=== PATIENT | female | born 1980 | race Two or more races ===

== ENCOUNTER 2022-05-13 08:52 | Emergency (ER) | payer OTHER, MEDICAID ==
[2022-05-13] MEDS ORDERED: ONDANSETRON HCL 4MG TABLET ONE (09:57)
[2022-05-13] MEDS ORDERED: ASPIRIN 81MG TABLET ONE (09:57)
[2022-05-13] MEDS ORDERED: ENOXAPARIN 80MG/0.8ML SYR SUBCUT ONE (14:45)
[2022-05-13 15:01] LABS: HCG SCREEN NEGATIVE
[2022-05-13 15:14] LABS: B-HCG QUANTITATIVE < 1 mIU/mL (<3); CHLORIDE 108 mEq/L (98-107)
[2022-05-13 15:21] LABS: BASOPHILS % 0.3 % (0.0-2.0); EOSINOPHILS % 0.1 % (0.0-5.0); HEMATOCRIT. 52.7 % (36.0-48.0); HEMOGLOBIN. 17.5 g/dL (12.0-16.0); LYMPHOCYTES % 10.3 % (20.0-50.0); MEAN CORPUSCULAR VOLUME 87.6 fL (81.0-99.0); MEAN PLATELET VOLUME 6.3 fl (7.4-10.4); MONOCYTES % 3.6 % (2.0-8.0); NEUTROPHILS % 85.7 % (40.0-76.0); PLATELET 135 x1000/uL (130-400); RED BLOOD CELL COUNT 6.02 mill/uL (4.2-5.4); RED CELL DISTRIBUTION WIDTH 15.8 % (11.6-14.6)
[2022-05-13 17:50] VITALS: BP 128/95
[2022-05-13 18:09] LABS: PROTHROMBIN TIME 11.2 sec (9.6-11.0)
== END 2022-05-13 18:03 | disposition short-term general hospital (02) ==
LOC: ER2 08:52 → ER 18:03 → CANBEDREQ 20:11
DX: R07.9 Chest pain, unspecified (principal); I21.4 Non-ST elevation (NSTEMI) myocardial infarction
CPT/HCPCS: 36415; 71045; 80053; 83880; 84484; 84702; 84703; 85025; 85610; 87426; 93005; 99291; C9803; J1650; Q0162